=== PATIENT | female | born 1940 | race Caucasian/White ===

== ENCOUNTER 2017-08-13 10:00 | Emergency (ER) | payer MEDICARE ==
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
== END 2017-08-13 14:44 | disposition home or self-care (01) ==
LOC: ER 10:00
DX: S40.012A Contusion of left shoulder, initial encounter (principal); S20.212A Contusion of left front wall of thorax, initial encounter; S51.812A Laceration without foreign body of left forearm, initial encounter; R31.9 Hematuria, unspecified; D72.829 Elevated white blood cell count, unspecified; R55 Syncope and collapse; J44.9 Chronic obstructive pulmonary disease, unspecified; Z23 Encounter for immunization; V03.99XA Pedestrian with other conveyance injured in collision with car, pick-up truck or van, unspecified whether traffic or nontraffic accident, initial encounter; Y92.410 Unspecified street and highway as the place of occurrence of the external cause